=== PATIENT | male | born 2000 | race Two or more races ===

== ENCOUNTER 2024-07-20 13:28 | Emergency (ER) | payer OTHER, SELFPAY ==
--- NOTE | ~2024-07-20 | XR_ITS ---
EXAMINATION: XR THORACIC SPINE XR LUMBAR SPINE CLINICAL INFORMATION: Sneezing, shooting back pain COMPARISON: None available. TECHNIQUE: AP and lateral views of the thoracic spine, and AP and lateral views of the lumbar spine and Grajeda and lateral views of the lumbosacral junction. FINDINGS: Thoracic: Vertebral body heights are normal. Alignment is anatomic without spondylolisthesis. Intervertebral disc heights are well-maintained. No degenerative disc disease. Paraspinal soft tissues are unremarkable. No osseous lesions are identified. Lumbar: Vertebral body heights are normal. No fracture or spondylolisthesis. Intervertebral disc heights are maintained without significant degenerative disc disease. Bone mineralization is normal. Soft tissues are unremarkable. Imaged portions of the sacroiliac joints are normal. XR/XR lumbar spine 2-3V IMPRESSION: Normal radiographs of the thoracic and lumbar spine. Electronically signed by: Juliette Atkins MD 07/20/2024 07:35 PM EDT
--- NOTE | ~2024-07-20 | XR_ITS ---
EXAMINATION: XR THORACIC SPINE XR LUMBAR SPINE CLINICAL INFORMATION: Sneezing, shooting back pain COMPARISON: None available. TECHNIQUE: AP and lateral views of the thoracic spine, and AP and lateral views of the lumbar spine and Grajeda and lateral views of the lumbosacral junction. FINDINGS: Thoracic: Vertebral body heights are normal. Alignment is anatomic without spondylolisthesis. Intervertebral disc heights are well-maintained. No degenerative disc disease. Paraspinal soft tissues are unremarkable. No osseous lesions are identified. Lumbar: Vertebral body heights are normal. No fracture or spondylolisthesis. Intervertebral disc heights are maintained without significant degenerative disc disease. Bone mineralization is normal. Soft tissues are unremarkable. Imaged portions of the sacroiliac joints are normal. XR/XR thoracic spine 3V IMPRESSION: Normal radiographs of the thoracic and lumbar spine. Electronically signed by: Juliette Atkins MD 07/20/2024 07:35 PM EDT
[2024-07-20 13:55] VITALS: BP 153/72; PULSE 89; RESP 16; TEMP 36.9; O2SAT 100; BMI 28.5
--- NOTE | 2024-07-20 13:56 | ED_ITS ---
HPI - Back Pain/Injury General Chief Complaint: Back Pain/Injury Stated Complaint: Back pain Time Seen by Provider: 07/20/24 16:31 Source: patient Mode of arrival: ambulatory Limitations: no limitations History of Present Illness ED Provider: LUCIAN JANSEN PA-C HPI Narrative: 24-year-old male with past medical history significant for mild disc herniation at L3/L4 presents to the ED today for evaluation of low back pain x1 week. Patient states that while bending over working on the floors at work he felt his left lower back begin to spasm which is not uncommon for him. Over the last w [place], the spasms have been intermittent until a sneezing episode occurring today in which felt a sudden onset spasm associated with sharp pain radiating around to his left abdomen. Reports constant spasm since with difficult moving his spine. Admits to trialing an old prescription of flexeril 10 mg at home without relief. Last dose around 1300 today. Denies blunt trauma/ injury/ fall. Denies hx of spinal surgery. Denies IV drug use. Denies fever, chills, neck pain, bowel or bladder incontinence or retention, numbness/tingling/weakness in the lower extremities, dysuria, hematuria, saddle anesthesia. Related Data Previous Rx's ?Medication ?Instructions ?Recorded prednisone 20 mg tablet 20 mg PO DAILY 12 days #26 tabs 07/20/24 Allergies Allergy/AdvReac Type Severity Reaction Status Date / Time Penicillins Allergy Mild Hives Verified 07/20/24 14:00 Review of Systems Review of Systems: Constitutional: No fever, chills, fatigue, night sweats, weight changes ENT/Mouth: No ear pain, hearing loss, nasal congestion, sinus pain, rhinorrhea, sore throat Eyes: No eye pain, swelling, redness, vision changes, discharge Cardio: No chest pain, palpitations, SAUCEDA, orthopnea, peripheral edema Pulm: No SOB, cough, sputum, wheezing, dyspnea, hemoptysis GI: No nausea, vomiting, hematemesis, abdominal pain, diarrhea, constipation, hematochezia, melena : No irregular bleeding, dysuria, frequency, urgency, hesitancy, hematuria, flank pain, urinary flow changes, urinary incontinence or retention MSK: +back pain, No neck pain, joint pain, myalgias Skin: No lesions, rashes Neuro: No weakness, numbness, paresthesias, LOC, dizziness, headache All other systems reviewed and are negative. [facility] Past Medical History Attestation statement: The following information was validated with the patient. Source: old records reviewed and nursing notes reviewed Social History Social History Advance Directives: No Advance Directives Information Provided: No Do you have a plan to hurt others: No Plan Physical Exam Vital Signs: Vital Signs: Last Vital Signs Temp 98.5 F 07/20/24 20:28 Pulse 60 07/20/24 20:28 Resp 13 07/20/24 20:28 BP 120/64 07/20/24 20:28 Pulse Ox 100 07/20/24 20:28 O2 Del Method Room Air 07/20/24 20:28 BMI result Body Mass Index 28.5 Vital signs stable General: Well appearing, in no acute distress. Skin: Warm, dry, intact. No rashes or lesions. Head: Normocephalic, atraumatic. EENT: Hearing is intact b/l. Conjunctiva clear. PERRLA. Moist mucous membranes.? Neck: Supple without LAD Cardiac: Chest wall symmetric. RRR. No MRG. No JVD. Lungs: Normal respiratory effort without accessory muscle use. CTA bilaterally.? Abdomen: Soft, non-tender, non-distended. No rebound tenderness or guarding. Positive BS x4. no palpable abdominal or inguinal hernia. Back: +Large palpable spasm of the left thoracic and lumbar paraspinal musculature. no midline spinous tenderness or step off deformity. Ext: Upper and lower extremities atraumatic, without tenderness, deformity, swelling or erythema. Full ROM throughout. Neuro: AOx3. Normal speech. Strength 5/5 intact throughout. No saddle anesthesia. Sensation intact to light touch. NV intact distally. Reflexes 2+ bilaterally. Ambulating with steady gait. Psych: Appropriate mood and affect. Responds appropriately to questions. Course Course Course Narrative: This is an RME performed by Hortencia Aaron CNP: Additional HPI, ROS, PE not included below will be deferred to primary provider. Patient is a 24-year-old male who presents emergency department for evaluation of left lower back pain. He states a few days ago he was helping a friend do some work around the house, he bent to pick something up and felt spasming in his back which is not uncommon for him. However, today while he was in the bathroom he reports that he sneezed and had sudden onset of severe pain to the left lower back radiating to the abdomen in the hip. Reports he has a known mild herniated disc at L3-L4, states it has been a few years since he has been evaluated, not following with any specialist Plan: Urinalysis, pain management Reevaluation(s) Reevaluation #1: 1800 -- on re-evaluation, patient reports no improvement in pain one hour after receiving toradol, valium, and lido patch. given continued symptoms, will add on thoracic/ lumbar xr. UA is negative for infection/ blood. Reevaluation #2: Ana Devine PA-C: Patient's XRs are negative. Patient's symptoms improved - but not resolved. Encouraged use of heat and massage at home as well as following up with a PCP + coastal and estuary specialist. Patient cleared for discharge. Time: 20:15 Medications Administered Discontinued Medications Generic Name Dose Route Start Last Admin Trade Name Blayne PRN Reason Stop Dose Admin Diazepam 5 mg 07/20/24 16:42 07/20/24 17:02 Diazepam 5 Mg Tablet PO 07/20/24 16:43 5 mg ONCE ONE Administration Ketorolac Tromethamine 30 mg 07/20/24 16:42 07/20/24 17:02 Ketorolac Tromethamine 30 Mg/Ml Vial IM 07/20/24 16:43 30 mg ONCE ONE Administration Lidocaine 1 patch 07/20/24 16:43 07/20/24 17:02 Lidocaine 4 % Patch Adh..Patch TRANSDERMA 07/20/24 16:44 1 patch ONCE ONE Administration Protocol Methylprednisolone Sodium Succinate 60 mg 07/20/24 18:28 07/20/24 18:57 Methylprednisolone Sod Succ 125 Mg/2 Ml Vial IM 07/20/24 18:29 60 mg ONCE ONE Administration Oxycodone HCl 10 mg 07/20/24 18:29 07/20/24 18:57 Oxycodone Hcl Immed Release 5 Mg Tablet PO 07/20/24 18:30 10 mg ONCE ONE Administration Medical Decision Making Medical Decision Making MDM Narrative: 24-year-old male with past medical history significant for mild disc herniation at L3/L4 presents to the ED today for evaluation of low back pain x1 week. Patient initially hypertensive to 153/72, now normotensive. Vitals otherwise wnl. He is uncomfortable appearing on examination. Large palpable spasm of the left thoracic and lumbar paraspinal musculature. no midline spinous tenderness or step off deformity. sensation and strength intact throughout. ambulating w/ steady gait. nv intact distally. no CVAT b/l. abdomen is soft, ND/NT, without rebound or guarding. Differential diagnosis includes muscle spasm, msk sprain/ strain. Lower suspicion for UTI. Unlikely fracture, subluxation, disc herniation. Presentation not consistent with cauda equina, Guillain-[place], epidural abscess. Plan for pain control, imaging, and re-evaluation Differential Diagnosis Differential Diagnoses: The differential diagnosis associated with the presentation includes as above Admission/Observation Not indicated. Lab Data MDM Lab Attestation statement: I reviewed the patient's lab results. as above Labs: Lab Results 07/20/24 Range/Units 16:53 Urine Color Yellow Urine Appearance Clear Urine pH 5.5 (5.0-9.0) Ur Specific [place] 1.020 (1.005-1.025) Urine Protein Negative (Neg-Trace) mg/dL Urine Glucose (UA) Negative (Negative) mg/dL Urine Ketones Negative (Negative) mg/dL Urine Blood Negative (Negative) Urine Nitrite Negative (Negative) Ur Leukocyte Esterase Negative (Negative) Independent Interpretation I performed an independent interpretation of an: Plain X-Ray Interpretation: xray thoracic and lumbar spine without fracture, agree with radiologist's interpretation. Radiology Impression Discussion of test interpretation with radiology: I have reviewed the radiologist's reading. Radiologist Impression: EXAMINATION: XR THORACIC SPINE XR LUMBAR SPINE CLINICAL INFORMATION: Sneezing, shooting back pain COMPARISON: None available. TECHNIQUE: AP and lateral views of the thoracic spine, and AP and lateral views of the lumbar spine and Grajeda and lateral views of the lumbosacral junction. FINDINGS: Thoracic: Vertebral body heights are normal. Alignment is anatomic without spondylolisthesis. Intervertebral disc heights are well-maintained. No degenerative disc disease. Paraspinal soft tissues are unremarkable. No osseous lesions are identified. Lumbar: Vertebral body heights are normal. No fracture or spondylolisthesis. Intervertebral disc heights are maintained without significant degenerative disc disease. Bone mineralization is normal. Soft tissues are unremarkable. Imaged portions of the sacroiliac joints are normal. XR/XR thoracic spine 3V IMPRESSION: Normal radiographs of the thoracic and lumbar spine. Electronically signed by: Juliette Atkins MD 07/20/2024 07:35 PM EDT Independent Historian Clinical information obtained from an independent historian. History obtained from or confirmed by: Spouse External Record Review External record reviewed: Inpatient record Prescription Management I considered prescription management with: Pain Medication Social Determinants Patient?s care significantly limited by Social Determinants of Health including: Other Social Determinant of Health Critical Care Time Critical Care Time Critical Care Time: No Discharge Plan Discharge Clinical Impression: Muscle spasm Patient Disposition: Home, Self-Care Instructions: Muscle Spasm (ED) Additional Instructions: Continue taking your flexeril. Follow up with your primary care provider and a coastal and estuary specialist. Return to the emergency department immediately if your symptoms worsen or if you develop any dizziness, shortness of breath, difficulty breathing, chest pain, blurry vision, loss of vision, nausea, vomiting, abdominal pain, fever, chills, back pain, or any other complaints. Prescriptions: New prednisone 20 mg tablet 20 mg PO DAILY 12 Days Qty: 26 0RF Rx Instructions: Take 3 tablets for 5 days THEN; Take 2 tablets for 4 days THEN; Take 1 tablet for 3 days Referrals: [facility] [Provider Group] (Call to establish and follow up with a coastal and estuary specialist.) [facility] [Provider Group] (Call to establish and follow up with a coastal and estuary specialist.) Zach Topete MD [Primary Care Provider] - Interventions: ED Discharge Assessment Last Done: 07/20/24 20:28 Discharge Date/Time: 07/20/24 20:31 Print Language: [place]
[2024-07-20 16:57] VITALS: BP 120/64; PULSE 60; RESP 13; TEMP 36.9; O2SAT 100
[2024-07-20] MEDS: diazePAM 5 MG TABLET PO (17:02)
[2024-07-20] MEDS: Lidocaine 4 % Patch ADH..PATCH 1 PATCH TRANSDERMA (17:02)
[2024-07-20] MEDS: Ketorolac Tromethamine 30 MG/ML VIAL IM (17:02)
--- NOTE | 2024-07-20 17:06 | PC.NURSE ---
pt medicated for 8-9/10 lower back pain per order.
[2024-07-20 17:07] LABS: Appearance Urine Clear; Color Urine Yellow; Glucose Urine UA Negative (Negative); Leukocyte Esterase Urine Negative (Negative); Nitrite Urine Negative (Negative); PH 5.5 (5.0-9.0); Urine Blood Negative (Negative); Urine Ketones Negative (Negative); Urine Protein Negative (Neg-Trace)
[2024-07-20] MEDS: methylPREDNISolone Sod Succ 125 MG/2 ML VIAL 60 MG IM (18:57)
[2024-07-20] MEDS: oxyCODONE HCl Immed Release 5 MG TABLET 10 MG PO (18:57)
--- NOTE | 2024-07-20 19:24 | MHC.EDTECH ---
At provider request, this tech ambulated patient through out ED, patient tolerated fairly. Was visibly uncomfortable, and slightly bent to the left side.
[2024-07-20 20:28] VITALS: BP 120/64; PULSE 60; RESP 13; TEMP 36.9; O2SAT 100
== END 2024-07-20 20:31 | disposition home or self-care (01) ==
PROVIDERS: Nurse Practitioner Family; Emergency Provider Emergency Medicine; PCP Pediatrics
DX: M62.830 Muscle spasm of back (principal); M54.50 Low back pain, unspecified
CPT/HCPCS: 72072; 72100; 81003; 96372; 99284; J1885; J2919